=== PATIENT | male | born 1955 | race African-American/Black ===

== ENCOUNTER 2016-04-13 05:27 | Day surgery (SDC) | payer BC, OTHER ==
[2016-03-16 08:57] LABS: HEMATOCRIT 49.2 % (37.9-51.0); HEMOGLOBIN 16.4 g/dL (13.5-17.0); MEAN CORPUSCULAR HEMOGLOBIN 33.1 pg (27.0-33.4); MEAN CORPUSCULAR HGB CONC 33.3 g/dL (32.0-36.0); MEAN CORPUSCULAR VOLUME 99 fl (80-97); RED BLOOD COUNT 4.95 10^6/uL (4.35-5.55); RED CELL DISTRIBUTION WIDTH 13.3 % (11.5-14.0); WHITE BLOOD COUNT 7.6 10^3/uL (4.0-10.5)
[2016-03-16 10:00] LABS: ANION GAP 10 (5-19); BLOOD UREA NITROGEN 16 mg/dL (7-20); CALCIUM 9.4 mg/dL (8.4-10.2); CARBON DIOXIDE 29 mmol/L (22-30); CHLORIDE 103 mmol/L (98-107); CREATININE RESULT 1.14 mg/dL (0.52-1.25); GLUCOSE 93 mg/dL (75-110); POTASSIUM 3.9 mmol/L (3.6-5.0); SODIUM 142.1 mmol/L (137-145)
--- NOTE | 2016-03-16 18:37 | EKG REPORT ---
SEVERITY:- NORMAL ECG - SINUS RHYTHM : Confirmed by: Roberto Wetzel MD 16-Mar-2016 18:36:10
[~2016-04-13 05:27] MED LIST: ACETAMINOPHEN 325 MG TABLET PO PRN; CLINDAMYCIN 600 MG/D5W RTU 600 MG/50 ML RTUPB IV PRN; LACTATED RINGERS 1000 ML IV PRN; LIDOCAINE 0.5% INJ-PF (5 MG/ML) 50 ML SDV SUBCUT PRN
[2016-04-13] MEDS ORDERED: PROPRANOLOL HCL 40 MG TABLET ONE (05:54)
[2016-04-13] MEDS ORDERED: BUPIVACAINE HCL 0.25 % INJ/PF (2.5 MG/1 ML) 30 ML VIAL ONE (06:39)
[2016-04-13] MEDS ORDERED: BUPIVACAINE INJ/PF LIPOSOME/PF 266 MG/20 ML SDV ONE (06:41)
[2016-04-13] MEDS ORDERED: FENTANYL CITRATE INJ/PF 250 MCG/5 ML AMPULE ONE (07:14)
[2016-04-13] MEDS ORDERED: ACETAMINOPHEN 100 ML IV ONE (07:14)
[2016-04-13] MEDS ORDERED: MIDAZOLAM 2 MG/2 ML INJ ONE (07:14)
[2016-04-13] MEDS ORDERED: HYDROMORPHONE HCL INJ/PF 2 MG/ML AMPULE ONE (07:14)
[2016-04-13] MEDS ORDERED: PROPOFOL INJ 200 MG/20 ML VIAL IV ONE (07:14)
[2016-04-13] MEDS ORDERED: MORPHINE SULFATE 10 MG/ML INJ IV PRN (08:03)
[2016-04-13] MEDS ORDERED: FENTANYL CITRATE INJ/PF 100 MCG/2 ML AMPUL IV PRN ×3 (08:03)
[2016-04-13] MEDS ORDERED: PROMETHAZINE HCL INJ 25 MG/1 ML VIAL IV PRN ×2 (08:03)
[2016-04-13] MEDS ORDERED: DIPHENHYDRAMINE HCL 50 MG/ML VIAL IV PRN (08:03)
[2016-04-13] MEDS ORDERED: OXYCODONE-ACETAMINOPHEN 5-325 MG TABLET PO PRN ×3 (08:03→08:28)
[2016-04-13] MEDS ORDERED: MEPERIDINE HCL/PF INJ 25 MG/1 ML DISP.SYRIN IV PRN (08:03)
[2016-04-13] MEDS ORDERED: ONDANSETRON HCL INJ/PF 4 MG/2 ML SDV IV PRN (08:28)
--- NOTE | 2016-04-13 08:28 | Operative Report ---
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 Reduction of incarcerated umbilical hernia. 2. Reclosure umbilical hernia. 3. Prosthetic reinforcement of primary closure with 9 cm parietex mesh SURGEON: SHADI MORRELL [employer] DEVELOPER: PRIMO BANEGAS ANESTHESIA: GA TISSUE REMOVED OR ALTERED: None COMPLICATIONS: None ESTIMATED BLOOD LOSS: none INTRAOPERATIVE FINDINGS: See below PROCEDURE: Patient was seen in the preop holding area, then taken to the operating room general anesthesia was induced uneventfully by Dr. Thomas. Arms extended, abdomen exposed, prepped and draped sterile fashion. Attention was set up for laparoscopic surgery Surgical plan and surgical timeout were conducted. Suitable site for placement of the Veress needle was identified in the left upper quadrant. Skin was anesthetized with quarter percent Marcaine. Knife wound was made with 11 blade in the left upper quadrant, Veress needle inserted the peritoneal cavity. Pneumoperitoneum was established. Needle was removed and a 5 mm ports inserted and a 5 mm flexible scope was inserted into the peritoneal cavity. Under direct visualization 2 additional ports were placed one in the left lower quadrant and one in the right midfield both 5 mm. Intra-abdominal findings were significant for safe entry of all ports. The omentum was stuck into the umbilical hernia. Incarcerated tissue was taken down using a combination of blunt and electrocautery dissection. All lumens of small bowel. The fascial defect was identified and was approximately 3 cm in diameter. We closed the primary defect transversely with 2 [id number] 0 PDS sutures thereby approximating the fascia. This was done after decompressing the peritoneal cavity of air. We then brought onto the field a 9 cm diameter,covidien mesh, parietex model, labeled, and placed 0 PDS sutures at the 12, 3, 6, and 9:00 positions. The mesh was rolled and brought to the anterior abdominal wall through one of the port site holes. The mesh was on folded, and brought out to the anterior abdominal wall using the disposable suture passer. We then secured the mesh further with the use of the disposable tacker francie deploying approximately 15. Final images were shot with the camera and photos were taken for the record. We checked for bleeding or visceral injury and there was none. We felt the operation was complete. Sponge and needle counts correct. All ports removed under direct visualization, pneumoperitoneum evacuated, wounds closed with 3-0 Vicryl, benzoin and Steri-Strips. Patient tolerated the procedure well, extubated and taken recovery in stable condition. The physician assistant media planner, Ms. Banegas, provided assistance during this case by: Assisting and port insertion, retracting tissue, instillation of local anesthesia and closure of skin incisions.
--- NOTE | 2016-04-13 08:32 | PDOC DISCHARGE SUMMARY ---
Discharge Summary (SDC) - Discharge Final Diagnosis: Umbilical hernia with incarceration Date of Surgery: 04/13/16 Discharge Date: 04/13/16 Condition: Good Treatment or Instructions: [facility] [address], [place] [address] Discharge Instructions: Laparoscopic Surgery 1. General Information: a. DO NOT DRIVE a car or operate dangerous machinery for 3-4 days or while taking narcotic pain pills. b. DO NOT consume alcohol, tranquilizers, sleeping medications or any non- prescribed medications for 24 hours unless approved by your doctor or as long as taking narcotic prescription medications. c. DO NOT make important decisions or sign any important papers for the first 24 hours after surgery. d. When discharged home the same day of surgery have a responsible person with you for the first night. 2. Activity Restrictions: 3 weeks. a. NO heavy lifting, straining abdominal muscles, bending over a lot, yard work, house work, or sports for [address] for 3-4 days or while taking Percocet c. It is fine to go for walks, up and down steps, ride in a car. d. Elevate your head when sleeping/resting. 3. Treatment: a. You may shower 24 hours after surgery, no baths or swimming for 2 weeks. Remove band-aids or dressings before shower but leave paper strips (steri-strips ) on the skin to fall off on their own. If still on at postoperative visit they will be removed then. b. Drainage of fluid or blood is not unusual from an incision. If occurs, you can clean with peroxide and cotton ball daily and cover with dry gauze until the wound seals. c. If a lot of bleeding occurs, you can hold pressure with a gauze or cloth over the site for 10 minutes and it will usually stop. If bleeding continues you will need to call for possible evaluation in office or emergency room. 4. Medications: a. Percocet may be taken for pain as needed, one or two tablets every 4-6 hours. Stop the narcotic when able since you cannot take it and drive, and they cause constipation. You may switch to plain Tylenol, Advil or Aleve as you transition from the narcotic. Many adults find good pain relief with Advil 600- 800 mg three times a day with meals. This can cause indigestion, ulcers, and kidney problems with long-term use. b. You should resume all normal medications unless a change is specified by your doctors. c. Begin with clear liquids and may progress to your normal diet if not nauseated. No high fat, high protein foods the day of surgery. Normal diet 6. The following may occur after laparoscopic surgery: a. Shoulder or upper back ache from retained gas that should resolve in 1-2 days b. Soreness and bruising at incision sites will resolve with time. c. Scrotal swelling (labia in women) and bruising is often seen after hernia surgery. d. Sore throat e. Fatigue may last days to weeks. f. Difficulty urinating may occur and may need to come into emergency room for urinary catheter placement. 7. Notify Physician If: a. Worsening or pain not improved with pain medication b. Persistent nausea and vomiting c. Fever above 101 d. Persistent bleeding or swelling at operative site e. Unable to urinate and uncomfortable bladder 6-8 hours after surgery 8..Follow Up Care: a. Schedule a follow up appointment with your doctor for 2 weeks. In the event of any postoperative problems or questions or you may call the office during business hours or the On-Call physician evenings and weekends at [facility]. [facility] I understand the instructions for my postoperative care as described above and a copy has been given to me. Patient/Significant Other Witness Date Prescriptions: Oxycodone HCl/Acetaminophen [Percocet 5-325 mg Tablet] 1 - 2 tab PO ASDIR PRN # 15 tablet PRN Reason: Discharge Diet: As Tolerated Discharge Activity: Activity As Tolerated Home Care Assistance: None Needed Report the Following to Your Physician Immediately: Shortness of Breath, Increase in Pain, Fever over 101 Degrees
[2016-04-13] MEDS: FENTANYL CITRATE INJ/PF 100 MCG/2 ML AMPUL ONE ×4 (08:53→09:35)
[2016-04-13] MEDS ORDERED: MORPHINE SULFATE 10 MG/ML INJ ONE (09:11)
[2016-04-13] MEDS ORDERED: ONDANSETRON HCL INJ/PF 4 MG/2 ML SDV ONE (09:52)
[2016-04-13] MEDS ORDERED: SUCCINYLCHOLINE CHLORIDE INJ 200 MG/10 ML VIAL ONE (09:52)
[2016-04-13] MEDS ORDERED: ROCURONIUM BROMIDE INJ 50 MG/5 ML VIAL IV ONE (09:52)
[2016-04-13] MEDS ORDERED: NEOSTIGMINE METHYLSULFATE 10 MG/10 ML VIAL ONE (09:52)
[2016-04-13] MEDS ORDERED: GLYCOPYRROLATE INJ 0.4 MG/2 ML VIAL ONE (09:52)
[2016-04-13 12:41] VITALS: BP 138/87
== END 2016-04-13 11:40 | disposition home or self-care (01) ==
LOC: OROUT 05:27
PROVIDERS: ATTEND Surgery
PROC: 0WUF4JZ Supplement Abdominal Wall with Synthetic Substitute, Percutaneous Endoscopic Approach (ICD-10-PCS; principal; 2016-04-13 07:30)
DX: K42.0 Umbilical hernia with obstruction, without gangrene (principal); M19.90 Unspecified osteoarthritis, unspecified site; F17.290 Nicotine dependence, other tobacco product, uncomplicated; R51 Headache; K21.9 Gastro-esophageal reflux disease without esophagitis; G47.33 Obstructive sleep apnea (adult) (pediatric); Z79.899 Other long term (current) drug therapy; Z88.3 Allergy status to other anti-infective agents; Z88.0 Allergy status to penicillin; Z87.892 Personal history of anaphylaxis
CPT/HCPCS: 93005; 36415; 85027; 80048; 93010; 49653; C1781; J2250; J3490 ×2; J3010 ×2; J2270; J1170; J0330; J2405; J2704; J0131; 752; C9290